=== PATIENT | female | born 1965 | race Hispanic/Latino ===

== ENCOUNTER → 2018-01-29 | Outpatient (CLI) | payer OTHER | END | disposition home or self-care (01) | LOC: RAH 12:01 | PROVIDERS: ATTEND Anesthesiology Pain Medicine | DX: M54.5 Low back pain (principal); Z98.890 Other specified postprocedural states | CPT/HCPCS: 72131 ==

== ENCOUNTER → 2018-06-24 | Outpatient (CLI) | payer OTHER | END | disposition home or self-care (01) | LOC: RAH 13:45 | PROVIDERS: ATTEND Family Medicine | DX: R92.2 Inconclusive mammogram (principal) | CPT/HCPCS: 76641; 77065 ==

== ENCOUNTER 2018-08-24 13:57 | Emergency (ER) | payer OTHER ==
[2018-08-24] MEDS ORDERED: ASPIRIN 325 MG TABLET ONE ×2 (14:49→16:11)
[2018-08-24] MEDS ORDERED: ALBUTEROL SULFATE 0.083% 2.5 MG/3 ML INH IH ONE (14:53)
[2018-08-24 15:19] LABS: BASOPHILS % (AUTO) 0.2 % (0.0-5.0); HEMATOCRIT 39.5 % (36-48); LYMPHOCYTES % (AUTO) 18.6 % (21.0-51.0); MEAN CORPUSCULAR HEMOGLOBIN 29.3 pg (27.0-33.0); MEAN CORPUSCULAR HGB CONC 34.1 g/dL (32.0-36.0); MEAN CORPUSCULAR VOLUME 85.9 fL (79-99); MONOCYTES % (AUTO) 18.7 % (3.0-13.0); NEUTROPHILS % (AUTO) 62.5 % (40.0-77.0); NUCLEATED RED BLOOD CELLS 0.2 % (0.0-0.19); PLATELET COUNT (AUTO) 349 K/uL (130-400); RED CELL DISTRIBUTION WIDTH 13.9 % (11.0-15.5); WHITE BLOOD COUNT (AUTO) 9.3 K/uL (4.8-10.8)
[2018-08-24 15:33] LABS: INR 0.93 (0.85-1.15); PARTIAL THROMBOPLASTIN TIME 26.4 SEC (26.3-35.5); PROTHROMBIN TIME 9.8 SEC (9.6-11.6)
[2018-08-24 15:43] LABS: CREATININE 0.7 mg/dL (0.5-1.5)
[2018-08-24] MEDS ORDERED: IOHEXOL-350 75 ML VIAL IV ONE (15:50)
[2018-08-24 15:55] LABS: ALBUMIN 3.3 g/dL (3.5-5.0); BILIRUBIN,TOTAL 0.2 mg/dL (0.2-1.0)
[2018-08-24] MEDS ORDERED: METHYLPREDNISOLONE SOD SUCC 40MG/ML 1ML ONE (16:11)
[2018-08-24] MEDS ORDERED: BENZONATATE 100 MG CAPSULE PO ONE (16:12)
[2018-08-24] MEDS ORDERED: IBUPROFEN 600 MG TABLET ONE (16:12)
[2018-08-24 16:13] LABS: B-TYPE NATRIURETIC PEPTIDE 86 pg/mL (0-100)
== END 2018-08-24 18:23 | disposition home or self-care (01) ==
LOC: EDH 13:57
DX: M94.0 Chondrocostal junction syndrome [Tietze] (principal); J10.1 Influenza due to other identified influenza virus with other respiratory manifestations; J40 Bronchitis, not specified as acute or chronic; I10 Essential (primary) hypertension; E78.5 Hyperlipidemia, unspecified; Z87.891 Personal history of nicotine dependence
CPT/HCPCS: 36415; 71045; 71275; 80053; 82550; 83874; 83880; 84484 ×2; 85025; 85610; 85730; 87804 ×2; 93005 ×2; 94640; 96374; 99285; J2920; Q9967

== ENCOUNTER → 2019-07-21 | Outpatient (CLI) | payer OTHER ==
[~2019-07-21] MED LIST: IOHEXOL-350 75 ML VIAL IV ONE
== END | disposition home or self-care (01) ==
LOC: RAH 08:20
PROVIDERS: ATTEND Family Medicine
DX: R10.2 Pelvic and perineal pain (principal)
CPT/HCPCS: 74178; Q9967

== ENCOUNTER → 2020-02-04 | Outpatient (CLI) | payer OTHER | END | disposition home or self-care (01) | LOC: RAH 11:07 | PROVIDERS: ATTEND Family Medicine | DX: N63.20 Unspecified lump in the left breast, unspecified quadrant (principal); N63.10 Unspecified lump in the right breast, unspecified quadrant; R92.8 Other abnormal and inconclusive findings on diagnostic imaging of breast; R92.1 Mammographic calcification found on diagnostic imaging of breast | CPT/HCPCS: 77066 ==

== ENCOUNTER → 2020-08-12 | Outpatient (CLI) | payer OTHER ==
[2020-08-12 14:36] LABS: CREATININE 0.7 mg/dL (0.5-1.5)
== END | disposition home or self-care (01) ==
LOC: LAB 13:42
PROVIDERS: ATTEND Anesthesiology Pain Medicine
DX: Z79.899 Other long term (current) drug therapy (principal)
CPT/HCPCS: 36415; 82565; 84520

== ENCOUNTER 2023-10-31 07:02 | Emergency (ER) | payer OTHER ==
[~2023-10-31] VITALS: Ht 167.6 cm; Wt 131.1 kg
[2023-10-31] MEDS: LORAZEPAM 2 MG/ML 1 ML VIAL IM ONE (08:21)
[2023-10-31] MEDS: LIDOCAINE HCL 2% VISCOUS 15 ML UDCUP PO ONE ×2 (08:22→11:53)
[2023-10-31] MEDS: MAG/ALUM/SIMETH 30 ML UDCUP PO ONE (08:22)
[2023-10-31 12:12] VITALS: BP 122/62; PULSE 69; RESP 16; O2SAT 96
== END 2023-10-31 12:27 | disposition home or self-care (01) ==
LOC: EDH 07:02
DX: R09.A2 Foreign body sensation, throat (principal); R13.19 Other dysphagia; I10 Essential (primary) hypertension; M19.90 Unspecified osteoarthritis, unspecified site; F41.9 Anxiety disorder, unspecified; Z90.710 Acquired absence of both cervix and uterus; Z98.890 Other specified postprocedural states
CPT/HCPCS: 99283; 70360; 96372; J2060

== ENCOUNTER → 2023-11-06 | Emergency (ER) | payer OTHER ==
[~2023-11-06] VITALS: Ht 167.6 cm; Wt 81.6 kg
[2023-11-06 01:59] VITALS: BP 166/74; PULSE 85; RESP 18
== END ==
LOC: EDH 01:58
DX: F41.0 Panic disorder [episodic paroxysmal anxiety] (principal); Z53.21 Procedure and treatment not carried out due to patient leaving prior to being seen by health care provider
CPT/HCPCS: 99281